=== PATIENT | female | born 1970 | race Caucasian/White ===

== ENCOUNTER 2018-07-14 08:27 | Outpatient (CLI) | payer BC ==
--- NOTE | 2018-07-14 10:58 | MMO ---
BILATERAL SCREENING MAMMOGRAM: Date: 07/14/18 HISTORY: Screening. COMPARISON: Mammograms from 2017, 2016, 2015, 2014, and 2011. TECHNIQUE: Bilateral screening CC and MLO mammograms. This patient's mammogram was interpreted with the assistance of computer-aided detection. FINDINGS: No suspicious mass, architectural distortion, or microcalcifications. IMPRESSION: BIRADS 1: Negative Continued annual mammographic screening is recommended. POS: [facility]
== END 2018-07-14 08:28 | disposition home or self-care (01) ==
LOC: SCSMAMMO 08:27
PROVIDERS: ATTEND Family Medicine
DX: Z12.31 Encounter for screening mammogram for malignant neoplasm of breast (principal)
CPT/HCPCS: 77067

== ENCOUNTER 2022-07-30 10:28 | Outpatient (CLI) | payer BC | END 2022-07-30 10:29 | disposition home or self-care (01) | LOC: BICMAMMO 10:28 | PROVIDERS: ATTEND Obstetrics & Gynecology | DX: R92.2 Inconclusive mammogram (principal) | CPT/HCPCS: G0279 ==